=== PATIENT | male | born 1960 | race Hispanic/Latino ===

== ENCOUNTER → 2023-05-05 | Outpatient (CLI) | payer BC ==
[~2023-05-05] MED LIST: CEPH500B PO
[2023-05-05 12:29] LABS: CREATININE 0.8 mg/dL (0.5-1.5)
== END | disposition home or self-care (01) ==
LOC: LAB 11:19
PROVIDERS: ATTEND Physician Assistant
DX: I73.9 Peripheral vascular disease, unspecified (principal)
CPT/HCPCS: 36415; 82565; 84520

== ENCOUNTER → 2023-05-15 | Outpatient (CLI) | payer BC ==
[~2023-05-15] MED LIST changes: +IOHEXOL 350 MG/ML 100ML INFUS..BTL IV ONE; +IOHEXOL-350 50ML VIAL IV ONE
== END | disposition home or self-care (01) ==
LOC: RAH 09:28
PROVIDERS: ATTEND Internal Medicine Cardiovascular Disease
DX: I77.811 Abdominal aortic ectasia (principal); I70.203 Unspecified atherosclerosis of native arteries of extremities, bilateral legs; I70.8 Atherosclerosis of other arteries
CPT/HCPCS: 75635; Q9967 ×2

== ENCOUNTER → 2023-07-11 | Outpatient (CLI) | payer BC ==
[~2023-07-11] MED LIST changes: +ASPI-1197 PO; +ATOR40TA71 PO; -CEPH500B PO; +CILO100T3 PO; +DIVA-78 PO; +EMPA25TA PO; +HONEY 1 APPL/ML TUBE TP ONE; -IOHEXOL 350 MG/ML 100ML INFUS..BTL IV ONE; -IOHEXOL-350 50ML VIAL IV ONE; +LIDOCAINE HCL 4% LTA SOL 4 ML VIAL TP ONE; +LOSA25TA41 PO; +OLAN20TA35 PO; +SITA1TAB6 PO; +VENL150T3 PO
== END | disposition home or self-care (01) ==
LOC: WHH 09:00
PROVIDERS: ATTEND Nurse Practitioner Family
DX: T87.81 Dehiscence of amputation stump (principal); E11.622 Type 2 diabetes mellitus with other skin ulcer; L98.492 Non-pressure chronic ulcer of skin of other sites with fat layer exposed; E11.69 Type 2 diabetes mellitus with other specified complication; M86.9 Osteomyelitis, unspecified; E11.51 Type 2 diabetes mellitus with diabetic peripheral angiopathy without gangrene; I10 Essential (primary) hypertension; E78.5 Hyperlipidemia, unspecified; F41.9 Anxiety disorder, unspecified; F32.A Depression, unspecified; Z79.82 Long term (current) use of aspirin; Z79.899 Other long term (current) drug therapy; Y83.8 Other surgical procedures as the cause of abnormal reaction of the patient, or of later complication, without mention of misadventure at the time of the procedure
CPT/HCPCS: 11042; 11045; A4450

== ENCOUNTER → 2023-07-18 | Outpatient (CLI) | payer BC ==
[~2023-07-18] MED LIST changes: -HONEY 1 APPL/ML TUBE TP ONE; -LIDOCAINE HCL 4% LTA SOL 4 ML VIAL TP ONE
== END | disposition home or self-care (01) ==
LOC: WHH 08:11
PROVIDERS: ATTEND Nurse Practitioner Family
DX: T87.81 Dehiscence of amputation stump (principal); E11.622 Type 2 diabetes mellitus with other skin ulcer; L98.492 Non-pressure chronic ulcer of skin of other sites with fat layer exposed; E11.69 Type 2 diabetes mellitus with other specified complication; M86.9 Osteomyelitis, unspecified; E11.51 Type 2 diabetes mellitus with diabetic peripheral angiopathy without gangrene; I10 Essential (primary) hypertension; E78.5 Hyperlipidemia, unspecified; F41.9 Anxiety disorder, unspecified; F32.A Depression, unspecified; Z79.82 Long term (current) use of aspirin; Z79.899 Other long term (current) drug therapy; Y83.8 Other surgical procedures as the cause of abnormal reaction of the patient, or of later complication, without mention of misadventure at the time of the procedure
CPT/HCPCS: 11042

== ENCOUNTER → 2023-07-25 | Outpatient (CLI) | payer BC ==
[~2023-07-25] MED LIST changes: +LIDOCAINE HCL 4% LTA SOL 4 ML VIAL TP ONE
== END | disposition home or self-care (01) ==
LOC: WHH 08:04
PROVIDERS: ATTEND Nurse Practitioner Family
DX: T87.81 Dehiscence of amputation stump (principal); E11.622 Type 2 diabetes mellitus with other skin ulcer; L98.492 Non-pressure chronic ulcer of skin of other sites with fat layer exposed; E11.69 Type 2 diabetes mellitus with other specified complication; M86.9 Osteomyelitis, unspecified; E11.51 Type 2 diabetes mellitus with diabetic peripheral angiopathy without gangrene; I10 Essential (primary) hypertension; E78.00 Pure hypercholesterolemia, unspecified; F41.9 Anxiety disorder, unspecified; F32.A Depression, unspecified; Z79.82 Long term (current) use of aspirin; Z79.4 Long term (current) use of insulin; Z79.899 Other long term (current) drug therapy; Y83.8 Other surgical procedures as the cause of abnormal reaction of the patient, or of later complication, without mention of misadventure at the time of the procedure
CPT/HCPCS: 87070; 87077; 87186; 99214; A6209; A6260

== ENCOUNTER → 2023-07-26 | Outpatient (CLI) | payer BC ==
[~2023-07-26] MED LIST changes: -LIDOCAINE HCL 4% LTA SOL 4 ML VIAL TP ONE
== END | disposition home or self-care (01) ==
LOC: WHH 08:03
PROVIDERS: ATTEND Nurse Practitioner Family
DX: T87.81 Dehiscence of amputation stump (principal); E11.622 Type 2 diabetes mellitus with other skin ulcer; L98.492 Non-pressure chronic ulcer of skin of other sites with fat layer exposed; E11.69 Type 2 diabetes mellitus with other specified complication; M86.9 Osteomyelitis, unspecified; E11.51 Type 2 diabetes mellitus with diabetic peripheral angiopathy without gangrene; I10 Essential (primary) hypertension; E78.00 Pure hypercholesterolemia, unspecified; F41.9 Anxiety disorder, unspecified; F32.A Depression, unspecified; Z79.82 Long term (current) use of aspirin; Z79.4 Long term (current) use of insulin; Z79.899 Other long term (current) drug therapy; Y83.5 Amputation of limb(s) as the cause of abnormal reaction of the patient, or of later complication, without mention of misadventure at the time of the procedure
CPT/HCPCS: G0463; A6209; 99211

== ENCOUNTER → 2023-07-27 | Outpatient (CLI) | payer BC | END | disposition home or self-care (01) | LOC: WHH 10:55 | PROVIDERS: ATTEND Nurse Practitioner Family | DX: T87.81 Dehiscence of amputation stump (principal); E11.622 Type 2 diabetes mellitus with other skin ulcer; L98.492 Non-pressure chronic ulcer of skin of other sites with fat layer exposed; E11.69 Type 2 diabetes mellitus with other specified complication; M86.9 Osteomyelitis, unspecified; E11.51 Type 2 diabetes mellitus with diabetic peripheral angiopathy without gangrene; I10 Essential (primary) hypertension; E78.00 Pure hypercholesterolemia, unspecified; F41.9 Anxiety disorder, unspecified; F32.A Depression, unspecified; Z79.82 Long term (current) use of aspirin; Z79.4 Long term (current) use of insulin; Z79.899 Other long term (current) drug therapy; Y83.8 Other surgical procedures as the cause of abnormal reaction of the patient, or of later complication, without mention of misadventure at the time of the procedure | CPT/HCPCS: 99211; A6209 ==

== ENCOUNTER → 2023-07-28 | Outpatient (CLI) | payer BC | END | disposition home or self-care (01) | LOC: WHH 08:56 | PROVIDERS: ATTEND Nurse Practitioner Family | DX: T87.81 Dehiscence of amputation stump (principal); E11.622 Type 2 diabetes mellitus with other skin ulcer; L98.492 Non-pressure chronic ulcer of skin of other sites with fat layer exposed; E11.69 Type 2 diabetes mellitus with other specified complication; M86.9 Osteomyelitis, unspecified; E11.51 Type 2 diabetes mellitus with diabetic peripheral angiopathy without gangrene; I10 Essential (primary) hypertension; E78.5 Hyperlipidemia, unspecified; F41.9 Anxiety disorder, unspecified; F32.A Depression, unspecified; Z79.82 Long term (current) use of aspirin; Z79.899 Other long term (current) drug therapy; Y83.8 Other surgical procedures as the cause of abnormal reaction of the patient, or of later complication, without mention of misadventure at the time of the procedure | CPT/HCPCS: G0463; A6209; 99211 ==

== ENCOUNTER → 2023-07-31 | Outpatient (CLI) | payer BC | END | disposition home or self-care (01) | LOC: WHH 09:13 | PROVIDERS: ATTEND Nurse Practitioner Family | DX: T87.81 Dehiscence of amputation stump (principal); E11.622 Type 2 diabetes mellitus with other skin ulcer; L98.492 Non-pressure chronic ulcer of skin of other sites with fat layer exposed; E11.69 Type 2 diabetes mellitus with other specified complication; M86.9 Osteomyelitis, unspecified; E11.51 Type 2 diabetes mellitus with diabetic peripheral angiopathy without gangrene; I10 Essential (primary) hypertension; E78.00 Pure hypercholesterolemia, unspecified; F41.9 Anxiety disorder, unspecified; F32.A Depression, unspecified; Z79.82 Long term (current) use of aspirin; Z79.84 Long term (current) use of oral hypoglycemic drugs; Z79.899 Other long term (current) drug therapy; Y83.8 Other surgical procedures as the cause of abnormal reaction of the patient, or of later complication, without mention of misadventure at the time of the procedure | CPT/HCPCS: 99211; A6209; A4450 ==

== ENCOUNTER → 2023-08-01 | Outpatient (CLI) | payer BC | END | disposition home or self-care (01) | LOC: WHH 08:51 | PROVIDERS: ATTEND Nurse Practitioner Family | DX: T87.81 Dehiscence of amputation stump (principal); E11.622 Type 2 diabetes mellitus with other skin ulcer; L98.492 Non-pressure chronic ulcer of skin of other sites with fat layer exposed; E11.69 Type 2 diabetes mellitus with other specified complication; M86.9 Osteomyelitis, unspecified; E11.51 Type 2 diabetes mellitus with diabetic peripheral angiopathy without gangrene; I10 Essential (primary) hypertension; E78.00 Pure hypercholesterolemia, unspecified; F41.9 Anxiety disorder, unspecified; F32.A Depression, unspecified; Z79.82 Long term (current) use of aspirin; Z79.4 Long term (current) use of insulin; Z79.899 Other long term (current) drug therapy; Y83.5 Amputation of limb(s) as the cause of abnormal reaction of the patient, or of later complication, without mention of misadventure at the time of the procedure | CPT/HCPCS: 99214; A6209 ==

== ENCOUNTER → 2023-08-02 | Outpatient (CLI) | payer BC | END | disposition home or self-care (01) | LOC: WHH 08:42 | PROVIDERS: ATTEND Nurse Practitioner Family | DX: T87.81 Dehiscence of amputation stump (principal); E11.622 Type 2 diabetes mellitus with other skin ulcer; L98.492 Non-pressure chronic ulcer of skin of other sites with fat layer exposed; E11.69 Type 2 diabetes mellitus with other specified complication; M86.9 Osteomyelitis, unspecified; E11.51 Type 2 diabetes mellitus with diabetic peripheral angiopathy without gangrene; I10 Essential (primary) hypertension; E78.00 Pure hypercholesterolemia, unspecified; F41.9 Anxiety disorder, unspecified; F32.A Depression, unspecified; Z79.82 Long term (current) use of aspirin; Z79.4 Long term (current) use of insulin; Z79.899 Other long term (current) drug therapy; Y83.8 Other surgical procedures as the cause of abnormal reaction of the patient, or of later complication, without mention of misadventure at the time of the procedure | CPT/HCPCS: G0463; A6209; 99211 ==

== ENCOUNTER → 2023-08-04 | Outpatient (CLI) | payer BC | END | disposition home or self-care (01) | LOC: WHH 08:59 | PROVIDERS: ATTEND Nurse Practitioner Family | DX: T87.81 Dehiscence of amputation stump (principal); E11.622 Type 2 diabetes mellitus with other skin ulcer; L98.492 Non-pressure chronic ulcer of skin of other sites with fat layer exposed; E11.69 Type 2 diabetes mellitus with other specified complication; M86.9 Osteomyelitis, unspecified; E11.51 Type 2 diabetes mellitus with diabetic peripheral angiopathy without gangrene; I10 Essential (primary) hypertension; E78.00 Pure hypercholesterolemia, unspecified; F41.9 Anxiety disorder, unspecified; F32.A Depression, unspecified; Z79.82 Long term (current) use of aspirin; Z79.84 Long term (current) use of oral hypoglycemic drugs; Z79.899 Other long term (current) drug therapy; Y83.5 Amputation of limb(s) as the cause of abnormal reaction of the patient, or of later complication, without mention of misadventure at the time of the procedure | CPT/HCPCS: G0463; A6209; 99211 ==

== ENCOUNTER → 2023-08-08 | Outpatient (CLI) | payer BC ==
[~2023-08-08] MED LIST changes: +LIDOCAINE HCL 4% LTA SOL 4 ML VIAL TP ONE
== END | disposition home or self-care (01) ==
LOC: WHH 09:06
PROVIDERS: ATTEND Nurse Practitioner Family
DX: T87.81 Dehiscence of amputation stump (principal); E11.622 Type 2 diabetes mellitus with other skin ulcer; L98.492 Non-pressure chronic ulcer of skin of other sites with fat layer exposed; E11.69 Type 2 diabetes mellitus with other specified complication; M86.9 Osteomyelitis, unspecified; E11.51 Type 2 diabetes mellitus with diabetic peripheral angiopathy without gangrene; I10 Essential (primary) hypertension; E78.00 Pure hypercholesterolemia, unspecified; F41.9 Anxiety disorder, unspecified; F32.A Depression, unspecified; Z79.82 Long term (current) use of aspirin; Z79.4 Long term (current) use of insulin; Z79.899 Other long term (current) drug therapy; Y83.5 Amputation of limb(s) as the cause of abnormal reaction of the patient, or of later complication, without mention of misadventure at the time of the procedure
CPT/HCPCS: 11042; A4649; A6196

== ENCOUNTER → 2023-08-11 | Outpatient (CLI) | payer BC ==
[~2023-08-11] MED LIST changes: -LIDOCAINE HCL 4% LTA SOL 4 ML VIAL TP ONE
== END | disposition home or self-care (01) ==
LOC: WHH 08:56
PROVIDERS: ATTEND Nurse Practitioner Family
DX: T87.81 Dehiscence of amputation stump (principal); E11.622 Type 2 diabetes mellitus with other skin ulcer; L98.492 Non-pressure chronic ulcer of skin of other sites with fat layer exposed; E11.69 Type 2 diabetes mellitus with other specified complication; M86.9 Osteomyelitis, unspecified; E11.51 Type 2 diabetes mellitus with diabetic peripheral angiopathy without gangrene; I10 Essential (primary) hypertension; E78.00 Pure hypercholesterolemia, unspecified; F41.9 Anxiety disorder, unspecified; F32.A Depression, unspecified; Z79.82 Long term (current) use of aspirin; Z79.4 Long term (current) use of insulin; Z79.899 Other long term (current) drug therapy; Y83.5 Amputation of limb(s) as the cause of abnormal reaction of the patient, or of later complication, without mention of misadventure at the time of the procedure
CPT/HCPCS: G0463; A4649; A6197; 99211

== ENCOUNTER → 2023-08-14 | Outpatient (CLI) | payer BC ==
[~2023-08-14] MED LIST changes: +LIDOCAINE HCL 4% LTA SOL 4 ML VIAL TP ONE
== END | disposition home or self-care (01) ==
LOC: WHH 08:58
PROVIDERS: ATTEND Nurse Practitioner Family
DX: T81.31XD Disruption of external operation (surgical) wound, not elsewhere classified, subsequent encounter (principal); E11.622 Type 2 diabetes mellitus with other skin ulcer; L98.492 Non-pressure chronic ulcer of skin of other sites with fat layer exposed; E11.69 Type 2 diabetes mellitus with other specified complication; M86.9 Osteomyelitis, unspecified; E11.51 Type 2 diabetes mellitus with diabetic peripheral angiopathy without gangrene; I10 Essential (primary) hypertension; E78.00 Pure hypercholesterolemia, unspecified; F41.9 Anxiety disorder, unspecified; F31.30 Bipolar disorder, current episode depressed, mild or moderate severity, unspecified; F17.210 Nicotine dependence, cigarettes, uncomplicated; Z79.82 Long term (current) use of aspirin; Z79.4 Long term (current) use of insulin; Z79.899 Other long term (current) drug therapy; Y83.8 Other surgical procedures as the cause of abnormal reaction of the patient, or of later complication, without mention of misadventure at the time of the procedure
CPT/HCPCS: 99214; A4649; A6196

== ENCOUNTER 2023-08-21 10:55 | Emergency (ER) | payer BC ==
[~2023-08-21] VITALS: Ht 165.1 cm; Wt 68.0 kg
[~2023-08-21 10:55] MED LIST changes: -LIDOCAINE HCL 4% LTA SOL 4 ML VIAL TP ONE
[2023-08-21 12:03] LABS: BASOPHILS # (AUTO) 0.02 K/uL (0.00-0.20); BASOPHILS % (AUTO) 0.4 % (0.0-5.0); EOSINOPHILS # (AUTO) 0.18 K/uL (0.00-0.70); EOSINOPHILS % (AUTO) 3.2 % (0.0-8.0); HEMATOCRIT 40.4 % (42-54); IMMATURE GRANULOCYTE ABSOLUTE 0.01 K/uL (0-1); LYMPHOCYTES # (AUTO) 0.6 K/uL (1.0-4.8); LYMPHOCYTES % (AUTO) 10.3 % (21.0-51.0); MEAN CORPUSCULAR HGB CONC 32.9 g/dL (32.0-36.0); MEAN CORPUSCULAR VOLUME 85.1 fL (79-99); MONOCYTES # (AUTO) 0.5 K/uL (0.1-1.0); NEUTROPHILS # (AUTO) 4.4 K/uL (1.8-7.7); NEUTROPHILS % (AUTO) 77.9 % (40.0-77.0); PLATELET COUNT (AUTO) 239 K/uL (130-400); RED BLOOD CELL COUNT(AUTO) 4.75 MIL/uL (4.50-6.20); RED CELL DISTRIBUTION WIDTH 12.8 % (11.0-15.5); WHITE BLOOD COUNT (AUTO) 5.7 K/uL (4.8-10.8)
[2023-08-21 12:15] LABS: CREATININE 0.8 mg/dL (0.5-1.5); POTASSIUM 4.2 mmol/L (3.5-5.1)
[2023-08-21 12:20] LABS: ALBUMIN 3.1 g/dL (3.5-5.0); BILIRUBIN,TOTAL 0.2 mg/dL (0.2-1.0); TOTAL PROTEIN, SERUM 7.6 g/dL (6.0-8.3)
[2023-08-21 13:38] VITALS: BP 144/97; PULSE 87; RESP 18; O2SAT 98
== END 2023-08-21 13:38 | disposition home or self-care (01) ==
LOC: EDH 10:55
DX: S00.03XA Contusion of scalp, initial encounter (principal); E11.65 Type 2 diabetes mellitus with hyperglycemia; R55 Syncope and collapse; I10 Essential (primary) hypertension; E78.00 Pure hypercholesterolemia, unspecified; Z79.84 Long term (current) use of oral hypoglycemic drugs; Z79.899 Other long term (current) drug therapy; W18.30XA Fall on same level, unspecified, initial encounter; Y93.89 Activity, other specified; Y92.89 Other specified places as the place of occurrence of the external cause; Y99.8 Other external cause status
CPT/HCPCS: 36415; 70450; 71045; 80053; 85025; 93005

== ENCOUNTER 2023-08-22 09:28 | Emergency (ER) | payer BC ==
[~2023-08-22] VITALS: Ht 165.1 cm; Wt 68.0 kg
[2023-08-22 10:07] LABS: BASOPHILS # (AUTO) 0.03 K/uL (0.00-0.20); BASOPHILS % (AUTO) 0.3 % (0.0-5.0); EOSINOPHILS # (AUTO) 0.16 K/uL (0.00-0.70); EOSINOPHILS % (AUTO) 1.8 % (0.0-8.0); HEMATOCRIT 38.2 % (42-54); IMMATURE GRANULOCYTE ABSOLUTE 0.04 K/uL (0-1); LYMPHOCYTES # (AUTO) 0.6 K/uL (1.0-4.8); MEAN CORPUSCULAR HEMOGLOBIN 28.1 pg (27.0-33.0); MEAN CORPUSCULAR VOLUME 85.1 fL (79-99); MONOCYTES # (AUTO) 0.6 K/uL (0.1-1.0); MONOCYTES % (AUTO) 6.8 % (3.0-13.0); NEUTROPHILS # (AUTO) 7.5 K/uL (1.8-7.7); NEUTROPHILS % (AUTO) 83.7 % (40.0-77.0); PLATELET COUNT (AUTO) 222 K/uL (130-400); RED BLOOD CELL COUNT(AUTO) 4.49 MIL/uL (4.50-6.20)
[2023-08-22 10:12] LABS: CREATININE 1.3 mg/dL (0.5-1.5); POTASSIUM 3.7 mmol/L (3.5-5.1)
[2023-08-22 10:39] LABS: INFLUENZA TYPE A Negative For Type A (NEGATIVE); INFLUENZA TYPE B Negative For Type B (NEGATIVE)
[2023-08-22 10:40] LABS: COVID19 (SARS ANTIGEN RAPID) PRESUMPTIVE NEGATIVE (NEGATIVE)
[2023-08-22 12:55] VITALS: BP 136/75; PULSE 88; RESP 18; O2SAT 99
[2023-08-22] MEDS ORDERED: LACTATED RINGERS 1000ML 1,000 ML IV ONE (13:30)
== END 2023-08-22 14:15 | disposition home or self-care (01) ==
LOC: EDH 09:28
DX: R53.1 Weakness (principal); E86.0 Dehydration; I10 Essential (primary) hypertension; E78.00 Pure hypercholesterolemia, unspecified; E11.9 Type 2 diabetes mellitus without complications; Z79.899 Other long term (current) drug therapy; Z20.822 Contact with and (suspected) exposure to COVID-19
CPT/HCPCS: 99284; 70450; 96360; 71045; 87426; 82550; 80048; 85025; 87804 ×2; 82948; 83605; 36415; 72170; 72125; J7120

== ENCOUNTER 2023-08-24 13:44 | Emergency (ER) | payer BC ==
[~2023-08-24] VITALS: Ht 165.1 cm; Wt 68.0 kg
[2023-08-24] MEDS ORDERED: TETANUS/DIPHTHERIA TOXOID [ADULT] 0.5 ML VIAL IM ONE (17:30)
[2023-08-24 18:51] VITALS: BP 138/82; PULSE 95; RESP 18; O2SAT 100
[2023-08-24] MEDS ORDERED: OCTYL 2-CYANOACRYLATE 1 EACH TP ONE (19:09)
== END 2023-08-24 19:25 | disposition home or self-care (01) ==
LOC: EDH 13:44
DX: S01.21XA Laceration without foreign body of nose, initial encounter (principal); S80.02XA Contusion of left knee, initial encounter; S80.01XA Contusion of right knee, initial encounter; E11.9 Type 2 diabetes mellitus without complications; E78.00 Pure hypercholesterolemia, unspecified; F17.200 Nicotine dependence, unspecified, uncomplicated; I10 Essential (primary) hypertension; Z79.02 Long term (current) use of antithrombotics/antiplatelets; Z79.82 Long term (current) use of aspirin; Z79.84 Long term (current) use of oral hypoglycemic drugs; Z79.899 Other long term (current) drug therapy; W18.39XA Other fall on same level, initial encounter; Y93.89 Activity, other specified; Y92.89 Other specified places as the place of occurrence of the external cause; Y99.8 Other external cause status
CPT/HCPCS: 99284; 90714; 73562; 70486; 90471; 12011; 99214; A6248

== ENCOUNTER → 2023-08-24 | Outpatient (CLI) | payer BC | END | disposition home or self-care (01) | LOC: WHH 11:01 | PROVIDERS: ATTEND Nurse Practitioner Family | DX: T81.31XD Disruption of external operation (surgical) wound, not elsewhere classified, subsequent encounter (principal); E11.622 Type 2 diabetes mellitus with other skin ulcer; L98.492 Non-pressure chronic ulcer of skin of other sites with fat layer exposed; E11.69 Type 2 diabetes mellitus with other specified complication; M86.9 Osteomyelitis, unspecified; E11.51 Type 2 diabetes mellitus with diabetic peripheral angiopathy without gangrene; I10 Essential (primary) hypertension; E78.00 Pure hypercholesterolemia, unspecified; F41.9 Anxiety disorder, unspecified; F31.30 Bipolar disorder, current episode depressed, mild or moderate severity, unspecified; F17.210 Nicotine dependence, cigarettes, uncomplicated; Z79.82 Long term (current) use of aspirin; Z79.4 Long term (current) use of insulin; Z79.899 Other long term (current) drug therapy; Y83.8 Other surgical procedures as the cause of abnormal reaction of the patient, or of later complication, without mention of misadventure at the time of the procedure | CPT/HCPCS: 99214; A6248 ==

== ENCOUNTER 2024-01-06 10:47 | Inpatient (IN) | payer BC ==
[~2024-01-06] VITALS: Ht 165.1 cm; Wt 51.3 kg
[2024-01-06 11:35] LABS: BASOPHILS # (AUTO) 0.02 K/uL (0.00-0.20); BASOPHILS % (AUTO) 0.1 % (0.0-5.0); HEMATOCRIT 23.4 % (42-54); IMMATURE GRANULOCYTE ABSOLUTE 0.07 K/uL (0-1); LYMPHOCYTES # (AUTO) 0.4 K/uL (1.0-4.8); LYMPHOCYTES % (AUTO) 3.1 % (21.0-51.0); MEAN CORPUSCULAR HEMOGLOBIN 28.6 pg (27.0-33.0); MEAN CORPUSCULAR HGB CONC 31.2 g/dL (32.0-36.0); MEAN CORPUSCULAR VOLUME 91.8 fL (79-99); MONOCYTES # (AUTO) 0.8 K/uL (0.1-1.0); MONOCYTES % (AUTO) 5.5 % (3.0-13.0); NEUTROPHILS # (AUTO) 12.7 K/uL (1.8-7.7); NEUTROPHILS % (AUTO) 90.8 % (40.0-77.0); PLATELET COUNT (AUTO) 506 K/uL (130-400); RED BLOOD CELL COUNT(AUTO) 2.55 MIL/uL (4.50-6.20); RED CELL DISTRIBUTION WIDTH 19.9 % (11.0-15.5)
[2024-01-06] MEDS: ZOSYN 3.375GM +NS 50ML IVPB ONE (11:40)
[2024-01-06] MEDS: 0.9%NACL 1000ML 1,845 ML IV ONE (11:40)
[2024-01-06 11:47] LABS: ALBUMIN 2.2 g/dL (3.5-5.0); BILIRUBIN,TOTAL 0.2 mg/dL (0.2-1.0); CREATININE 0.9 mg/dL (0.5-1.3); MAGNESIUM 2.1 mg/dL (1.80-2.40); TOTAL PROTEIN, SERUM 7.5 g/dL (6.0-8.3)
[2024-01-06] MEDS: VANCOMYCIN KIT 1 GM/250 ML IV.KIT IV ONE (12:08)
[2024-01-06] MEDS ORDERED: VANCOMYCIN PROTOCOL PER PHARMACY IV SCH (12:30)
[2024-01-06] MEDS ORDERED: CEFEPIME HCL 1 GM VIAL IVPB SCH ×2 (12:30→18:00)
[2024-01-06 12:59] LABS: THYROID STIMULATING HORMONE 1.71 uIU/mL (0.36-3.74)
[2024-01-06] MEDS ORDERED: COMPOUND IV MISC 1 EACH IVSOLN MISC PRN (13:00)
[2024-01-06 13:41] LABS: ABG OXYGEN SATURATION 27.9 % (95.0-99.0); DEVICE COMMENT VENOUS; HCO3,VENOUS BLOOD GAS 22.7 (21.0-28.0); PCO2,VENOUS BLOOD GAS 39 (32-45); PH,VENOUS BLOOD GAS 7.383 (7.350-7.450); PO2,VENOUS BLOOD GAS 18.5 mmHg (35.0-45.0); VENT MODE, BG RA (ROOM AIR)
[2024-01-06 13:48] LABS: APPEARANCE,URINE CLEAR (CLEAR); BILIRUBIN,URINE NEGATIVE (NEGATIVE); GLUCOSE, URINE (UA) >=1000 mg/dL (NEGATIVE); KETONES,URINE NEGATIVE (NEGATIVE); LEUKOCYTE ESTERASE ,URINE 25 Leu/uL (NEGATIVE); NITRATE,URINE NEGATIVE (NEGATIVE); OCCULT BLOOD,URINE NEGATIVE (NEGATIVE); PH,URINE 5.5 (5.0-8.0); PROTEIN,URINE NEGATIVE (NEGATIVE); UROBILINOGEN,URINE 0.2 mg/dL (0.2-1.0)
[2024-01-06 13:49] LABS: ADD UA MICROSCOPIC YES; COLOR,URINE LIGHT-YELLOW (YELLOW)
[2024-01-06 13:50] LABS: BACTERIA,URINE RARE /HPF (None Seen); RBC,URINE 0-1 /HPF (0-1); SQUAMOUS EPITHELIAL CELL,UR FEW /HPF (0-2)
[2024-01-06] MEDS: 0.9%NACL 1000ML 1,000 ML IV SCH (13:59)
[2024-01-06] MEDS ORDERED: ACETAMINOPHEN 500 MG TABLET PO PRN (14:00)
[2024-01-06] MEDS ORDERED: IOHEXOL 350 MG/ML 100ML INFUS..BTL IV ONE (15:07)
[2024-01-06 16:28] LABS: HEMATOCRIT 17.8 % (42-54)
[2024-01-06 16:53] LABS: BASOPHILS # (AUTO) 0.01 K/uL (0.00-0.20); BASOPHILS % (AUTO) 0.1 % (0.0-5.0); EOSINOPHILS # (AUTO) 0.02 K/uL (0.00-0.70); EOSINOPHILS % (AUTO) 0.2 % (0.0-8.0); IMMATURE GRANULOCYTE ABSOLUTE 0.04 K/uL (0-1); LYMPHOCYTES # (AUTO) 0.6 K/uL (1.0-4.8); LYMPHOCYTES % (AUTO) 6.6 % (21.0-51.0); MEAN CORPUSCULAR HEMOGLOBIN 28.3 pg (27.0-33.0); MEAN CORPUSCULAR HGB CONC 30.7 g/dL (32.0-36.0); MEAN CORPUSCULAR VOLUME 92.2 fL (79-99); MONOCYTES # (AUTO) 0.6 K/uL (0.1-1.0); MONOCYTES % (AUTO) 6.6 % (3.0-13.0); NEUTROPHILS # (AUTO) 7.5 K/uL (1.8-7.7); PLATELET COUNT (AUTO) 399 K/uL (130-400); RED BLOOD CELL COUNT(AUTO) 2.05 MIL/uL (4.50-6.20); RED CELL DISTRIBUTION WIDTH 20.2 % (11.0-15.5); WHITE BLOOD COUNT (AUTO) 8.7 K/uL (4.8-10.8)
[2024-01-06 16:59] LABS: HEMATOCRIT 18.9 % (42-54)
[2024-01-06] MEDS: MEROPENEM 1 GM in 0.9%NACL 100ML IVPB SCH (18:00)
[2024-01-06] MEDS: INSULIN HUMULIN R 100 UNIT/ML 3ML SQ SCH (18:00)
[2024-01-06] MEDS: LOSARTAN 25 MG TABLET PO ONE (18:23)
[2024-01-06 19:50] VITALS: BP 102/68; PULSE 93; RESP 20
[2024-01-06] MEDS: MEROPENEM 1 GM VIAL ONE (21:09)
[2024-01-06 23:07] LABS: HEMATOCRIT 22.3 % (42-54)
[2024-01-07] VITALS (13 sets, daily range): BP systolic 98–188; BP diastolic 64–91; PULSE 78–100; RESP 16–18; O2SAT 99–100
[2024-01-07] MEDS: VANCOMYCIN 500MG+NS 100ML IV SCH (01:07)
[2024-01-07 04:56] LABS: HEMATOCRIT 26.6 % (42-54)
[2024-01-07 05:36] LABS: BASOPHILS # (AUTO) 0.02 K/uL (0.00-0.20); BASOPHILS % (AUTO) 0.3 % (0.0-5.0); EOSINOPHILS # (AUTO) 0.04 K/uL (0.00-0.70); EOSINOPHILS % (AUTO) 0.6 % (0.0-8.0); IMMATURE GRANULOCYTE ABSOLUTE 0.04 K/uL (0-1); LYMPHOCYTES # (AUTO) 0.6 K/uL (1.0-4.8); LYMPHOCYTES % (AUTO) 7.8 % (21.0-51.0); MEAN CORPUSCULAR HEMOGLOBIN 29.7 pg (27.0-33.0); MEAN CORPUSCULAR HGB CONC 31.9 g/dL (32.0-36.0); MEAN CORPUSCULAR VOLUME 93.2 fL (79-99); MONOCYTES # (AUTO) 0.6 K/uL (0.1-1.0); NEUTROPHILS # (AUTO) 5.8 K/uL (1.8-7.7); NEUTROPHILS % (AUTO) 81.7 % (40.0-77.0); PLATELET COUNT (AUTO) 389 K/uL (130-400); RED BLOOD CELL COUNT(AUTO) 2.93 MIL/uL (4.50-6.20); WHITE BLOOD COUNT (AUTO) 7.1 K/uL (4.8-10.8)
[2024-01-07 05:38] LABS: CREATININE 0.6 mg/dL (0.5-1.3); POTASSIUM 3.5 mmol/L (3.5-5.1)
[2024-01-07] MEDS: LOSARTAN 25 MG TABLET PO SCH (09:40)
[2024-01-07 11:09] LABS: HEMATOCRIT 29.9 % (42-54)
[2024-01-07] MEDS ORDERED: CILO100T3 PO (14:17)
[2024-01-07] MEDS ORDERED: PIOG15TA66 PO (14:23)
[2024-01-07] MEDS ORDERED: DAPA10TA PO (14:23)
[2024-01-07] MEDS ORDERED: INSU200I4 SQ (14:23)
[2024-01-07] MEDS ORDERED: METO25TA6 PO (14:23)
[2024-01-07] MEDS ORDERED: METF-446 PO (14:23)
[2024-01-07 16:00] LABS: HEMATOCRIT 29.3 % (42-54)
[2024-01-07] MEDS: METOPROLOL TARTRATE 25 MG TAB PO SCH (20:40)
[2024-01-07] MEDS: OLANZAPINE 5 MG TAB PO SCH (20:40)
[2024-01-07] MEDS: RIFAMPIN 300 MG CAPSULE PO SCH (20:40)
[2024-01-08] VITALS (28 sets, daily range): BP systolic 126–195; BP diastolic 57–98; PULSE 68–104; RESP 15–21; O2SAT 99
[2024-01-08 05:13] LABS: HEMATOCRIT 29.2 % (42-54); MEAN CORPUSCULAR HEMOGLOBIN 28.8 pg (27.0-33.0); MEAN CORPUSCULAR HGB CONC 31.5 g/dL (32.0-36.0); MEAN CORPUSCULAR VOLUME 91.3 fL (79-99); RED BLOOD CELL COUNT(AUTO) 3.2 MIL/uL (4.50-6.20); RED CELL DISTRIBUTION WIDTH 18.4 % (11.0-15.5); WHITE BLOOD COUNT (AUTO) 6.6 K/uL (4.8-10.8)
[2024-01-08 05:23] LABS: CREATININE 0.6 mg/dL (0.5-1.3); POTASSIUM 3.2 mmol/L (3.5-5.1)
[2024-01-08 05:24] LABS: INR <= 0.93 (0.85-1.15)
[2024-01-08 05:26] LABS: PARTIAL THROMBOPLASTIN TIME 34.2 SEC (26.3-35.5)
[2024-01-08] MEDS: POTASSIUM CHLORIDE 20MEQ/100ML 100 ML IV PRN (05:59)
[2024-01-08] MEDS ORDERED: POTASSIUM CHLORIDE 10% ELIXIR 20 MEQ/15 ML UDCUP PO PRN (06:00)
[2024-01-08] MEDS: POTASSIUM CHLORIDE 20MEQ/100ML 100 ML IV ONE (08:35)
[2024-01-08] MEDS: ATORVASTATIN 40 MG TABLET PO SCH (09:00)
[2024-01-08] MEDS: VENLAFAXINE HCL XR 37.5 MG CAP PO SCH (09:00)
[2024-01-08] MEDS: VANCOMYCIN 750MG VIAL IVPB SCH (13:00)
[2024-01-08] MEDS: ACETAMINOPHEN 1,000 MG/100 ML VIAL IV ONE (13:33)
[2024-01-08] MEDS: FAMOTIDINE 20MG VIAL IV ONE (13:33)
[2024-01-08] MEDS ORDERED: LIDOCAINE PF 100MG/5ML (2%) SYRINGE 5ML ONE (13:37)
[2024-01-08] MEDS ORDERED: PROPOFOL 10 MG/ML 20ML VIAL IV ONE (13:37)
[2024-01-08] MEDS ORDERED: ROCURONIUM BROMIDE 10MG/1ML 5ML VL ONE (13:38)
[2024-01-08] MEDS: 0.9%NACL 1000ML 1,000 ML IV ONE (13:55)
[2024-01-08] MEDS ORDERED: FENTANYL CITRATE PF 50 MCG/1 ML 2ML VIAL ONE ×2 (14:49→16:09)
[2024-01-08] MEDS ORDERED: MIDAZOLAM HCL 1 MG/ML 2ML VIAL ONE (14:49)
[2024-01-08] MEDS ORDERED: PHENYLEPHRINE HCL 10 MG/ML 1ML VIAL IV ONE ×2 (15:16→15:20)
[2024-01-08] MEDS ORDERED: CEFAZOLIN SODIUM 1 GM VIAL ONE (15:35)
[2024-01-08] MEDS ORDERED: TRANEXAMIC ACID 1000MG/10ML ONE (15:54)
[2024-01-08] MEDS ORDERED: ACETAMINOPHEN 325 MG TAB PO PRN (16:00)
[2024-01-08] MEDS ORDERED: TRAMADOL HCL 50 MG TABLET PO PRN (16:00)
[2024-01-08] MEDS ORDERED: NEOSTIGMINE METHYLSULFATE 1MG/ML IV ONE (16:06)
[2024-01-08] MEDS ORDERED: GLYCOPYRROLATE 0.2 MG/ML 5 ML VIAL ONE (16:06)
[2024-01-08] MEDS: DEXTROSE 50%-WATER 50 ML DISP.SYRIN IV ONE (16:43)
[2024-01-08] MEDS: HYDRALAZINE 20MG/ML VIAL IV PRN (18:19)
[2024-01-08] MEDS: TRAMADOL HCL 50 MG TABLET PO PRN (19:31)
[2024-01-08] MEDS: CEFAZOLIN SODIUM 1 GM VIAL IVPB SCH (22:51)
[2024-01-09] VITALS (8 sets, daily range): BP systolic 138–164; BP diastolic 72–82; PULSE 76–94; RESP 16–21; O2SAT 98
[2024-01-09 05:07] LABS: HEMATOCRIT 31.9 % (42-54); MEAN CORPUSCULAR HEMOGLOBIN 29.7 pg (27.0-33.0); MEAN CORPUSCULAR HGB CONC 31.7 g/dL (32.0-36.0); MEAN CORPUSCULAR VOLUME 93.8 fL (79-99); RED BLOOD CELL COUNT(AUTO) 3.4 MIL/uL (4.50-6.20); RED CELL DISTRIBUTION WIDTH 18.3 % (11.0-15.5); WHITE BLOOD COUNT (AUTO) 7.5 K/uL (4.8-10.8)
[2024-01-09 05:26] LABS: ALBUMIN 1.7 g/dL (3.5-5.0); BILIRUBIN,TOTAL 0.3 mg/dL (0.2-1.0); CREATININE 0.8 mg/dL (0.5-1.3); MAGNESIUM 1.6 mg/dL (1.80-2.40); POTASSIUM 3.5 mmol/L (3.5-5.1); TOTAL PROTEIN, SERUM 6.1 g/dL (6.0-8.3)
[2024-01-09] MEDS: KCL 20 MEQ ERTAB PO PRN (06:25)
[2024-01-09] MEDS: MAGNESIUM 2GM PREMIX 50ML 50 ML IV PRN (06:26)
[2024-01-09] MEDS: POTASSIUM CHLORIDE 20MEQ/100ML 100 ML IV ONE (13:00)
[2024-01-09] MEDS ORDERED: MAGNESIUM 2GM PREMIX 50ML 50 ML IV SCH (13:00)
[2024-01-09] MEDS: NAFCILLIN 2GM+ NS 100ML 100 ML IV SCH (13:19)
[2024-01-09] MEDS ORDERED: CEFAZOLIN SODIUM 2 GM VIAL IVPB SCH (14:00)
[2024-01-10] VITALS (7 sets, daily range): BP systolic 130–164; BP diastolic 65–80; PULSE 75–95; RESP 16–18; O2SAT 98
[2024-01-10 04:53] LABS: HEMATOCRIT 27.7 % (42-54); MEAN CORPUSCULAR HEMOGLOBIN 29.2 pg (27.0-33.0); MEAN CORPUSCULAR VOLUME 93.9 fL (79-99); RED BLOOD CELL COUNT(AUTO) 2.95 MIL/uL (4.50-6.20); RED CELL DISTRIBUTION WIDTH 17.7 % (11.0-15.5); WHITE BLOOD COUNT (AUTO) 6.9 K/uL (4.8-10.8)
[2024-01-10 05:15] LABS: ALBUMIN 1.6 g/dL (3.5-5.0); BILIRUBIN,TOTAL 0.5 mg/dL (0.2-1.0); CREATININE 0.6 mg/dL (0.5-1.3); MAGNESIUM 1.9 mg/dL (1.80-2.40); POTASSIUM 3.5 mmol/L (3.5-5.1); TOTAL PROTEIN, SERUM 5.9 g/dL (6.0-8.3)
[2024-01-10] MEDS: CILOSTAZOL 100 MG TAB PO SCH (20:43)
[2024-01-11 00:05] VITALS: BP 161/87; PULSE 82; RESP 18
[2024-01-11 04:30] VITALS: BP 136/68; PULSE 84; RESP 18
[2024-01-11 04:54] LABS: HEMATOCRIT 25.8 % (42-54); MEAN CORPUSCULAR HEMOGLOBIN 28.8 pg (27.0-33.0); MEAN CORPUSCULAR HGB CONC 31.4 g/dL (32.0-36.0); MEAN CORPUSCULAR VOLUME 91.8 fL (79-99); RED BLOOD CELL COUNT(AUTO) 2.81 MIL/uL (4.50-6.20); RED CELL DISTRIBUTION WIDTH 17.6 % (11.0-15.5); WHITE BLOOD COUNT (AUTO) 6.5 K/uL (4.8-10.8)
[2024-01-11 05:20] LABS: ALBUMIN 1.5 g/dL (3.5-5.0); BILIRUBIN,TOTAL 0.3 mg/dL (0.2-1.0); CREATININE 0.7 mg/dL (0.5-1.3); MAGNESIUM 2.1 mg/dL (1.80-2.40); POTASSIUM 3.6 mmol/L (3.5-5.1); TOTAL PROTEIN, SERUM 5.7 g/dL (6.0-8.3)
[2024-01-11 07:30] VITALS: O2SAT 98
[2024-01-11 08:00] VITALS: BP 167/86; PULSE 88; RESP 16
[2024-01-11 11:55] VITALS: BP 126/54; PULSE 76; RESP 16
[2024-01-11 16:18] VITALS: BP 160/82; PULSE 81; RESP 16
== END 2024-01-11 16:44 | DRG 252 ==
LOC: EDH 10:47 → EDHIP 12:08 → 2DH 20:19
PROVIDERS: ADMIT Internal Medicine; ATTEND Internal Medicine
PROC: 30233N1 Transfusion of Nonautologous Red Blood Cells into Peripheral Vein, Percutaneous Approach (ICD-10-PCS; 2024-01-06)
PROC: 2W1MX6Z Compression of Left Lower Extremity using Pressure Dressing (ICD-10-PCS; 2024-01-08)
PROC: 04PY0JZ Removal of Synthetic Substitute from Lower Artery, Open Approach (ICD-10-PCS; principal; 2024-01-08 14:59)
DX: T82.7XXA Infection and inflammatory reaction due to other cardiac and vascular devices, implants and grafts, initial encounter (principal); A41.9 Sepsis, unspecified organism; R65.21 Severe sepsis with septic shock; D64.9 Anemia, unspecified; E11.65 Type 2 diabetes mellitus with hyperglycemia; R20.0 Anesthesia of skin; B95.61 Methicillin susceptible Staphylococcus aureus infection as the cause of diseases classified elsewhere; E11.51 Type 2 diabetes mellitus with diabetic peripheral angiopathy without gangrene; E78.00 Pure hypercholesterolemia, unspecified; F17.210 Nicotine dependence, cigarettes, uncomplicated; F32.A Depression, unspecified; I10 Essential (primary) hypertension; Y83.2 Surgical operation with anastomosis, bypass or graft as the cause of abnormal reaction of the patient, or of later complication, without mention of misadventure at the time of the procedure; Z83.3 Family history of diabetes mellitus; Z79.899 Other long term (current) drug therapy
CPT/HCPCS: 36415; 36430; 36600; 70450; 71045; 73521; 73702; 80048; 80053; 80202; 81001; 82803; 82948; 83036; 83605; 83735; 83880; 84145; 84443; 84484; 85014; 85018; 85025; 85027; 85610; 85730; 86140; 86850; 86900; 86901; 86923; 87040; 87070; 87076; 87077; 87186; 87205; 93005; 93925; 96365; 96366; 96367; 99291; G0378; J0360; J0690; J1644; J1815; J2001; J2185; J2250; J2371; J2543; J2704; J2710; J3010; J3370; J3475; J3480; J3490; J7030; J7070; P9016; Q9967; A4452; A4649; A6210; A6219; A9272; C1713

== ENCOUNTER → 2024-03-18 | Outpatient (CLI) | payer BC ==
[~2024-03-18] MED LIST changes: -ASPI-1197 PO; -DIVA-78 PO; -EMPA25TA PO; -LOSA25TA41 PO; -OLAN20TA35 PO; +OLAN20TA82 PO; -SITA1TAB6 PO
[2024-03-18 12:38] LABS: HEMOGLOBIN A1C 7.6 % (4.0-6.0)
[2024-03-18 12:41] LABS: CHOLESTEROL 126 mg/dL (<200); HDL CHOLESTEROL 48 mg/dL (29-71); LDL DIRECT 64 mg/dL (0-99); TRIGLYCERIDES 63 mg/dL (30-200)
== END | disposition home or self-care (01) ==
LOC: LAB 10:24
PROVIDERS: ATTEND Student in an Organized Health Care Education/Training Program
DX: I73.9 Peripheral vascular disease, unspecified (principal)
CPT/HCPCS: 36415; 80061; 83036

== ENCOUNTER 2024-06-19 18:16 | Inpatient (IN) | payer BC ==
[~2024-06-19] VITALS: Ht 165.1 cm; Wt 56.5 kg
[2024-06-19 18:51] LABS: BASOPHILS # (AUTO) 0.02 K/uL (0.00-0.20); BASOPHILS % (AUTO) 0.3 % (0.0-5.0); EOSINOPHILS # (AUTO) 0.08 K/uL (0.00-0.70); HEMATOCRIT 23.1 % (42-54); IMMATURE GRANULOCYTE ABSOLUTE 0.02 K/uL (0-1); LYMPHOCYTES # (AUTO) 0.5 K/uL (1.0-4.8); LYMPHOCYTES % (AUTO) 6.7 % (21.0-51.0); MEAN CORPUSCULAR HEMOGLOBIN 25.2 pg (27.0-33.0); MEAN CORPUSCULAR HGB CONC 30.3 g/dL (32.0-36.0); MEAN CORPUSCULAR VOLUME 83.1 fL (79-99); MONOCYTES # (AUTO) 0.8 K/uL (0.1-1.0); MONOCYTES % (AUTO) 9.9 % (3.0-13.0); NEUTROPHILS # (AUTO) 6.5 K/uL (1.8-7.7); NEUTROPHILS % (AUTO) 81.8 % (40.0-77.0); PLATELET COUNT (AUTO) 401 K/uL (130-400); RED BLOOD CELL COUNT(AUTO) 2.78 MIL/uL (4.50-6.20); RED CELL DISTRIBUTION WIDTH 23.2 % (11.0-15.5)
[2024-06-19 19:04] LABS: CREATININE 0.8 mg/dL (0.5-1.3); POTASSIUM 4.1 mmol/L (3.5-5.1)
[2024-06-19 19:12] LABS: INR <= 0.93 (0.85-1.15); PROTHROMBIN TIME 10.1 SEC (9.6-11.6)
[2024-06-19 19:13] LABS: B-TYPE NATRIURETIC PEPTIDE 170 pg/mL (0-100); PARTIAL THROMBOPLASTIN TIME 29.1 SEC (26.3-35.5)
[2024-06-19 19:15] LABS: PLATELET MORPHOLOGY LARGE PLTS PRESENT
[2024-06-19] MEDS ORDERED: LAbetaLOL 20MG SYG IV PRN (20:30)
[2024-06-19] MEDS ORDERED: ALBUTEROL 0.083% 2.5 MG/3 ML INH IH PRN (20:30)
[2024-06-19] MEDS ORDERED: hydrALAZine 20MG/ML VIAL IV PRN (20:30)
[2024-06-19] MEDS ORDERED: DEXTROSE 50%-WATER 50 ML DISP.SYRIN IV PRN (20:30)
[2024-06-19] MEDS ORDERED: MAGNESIUM 2GM PREMIX 50ML 50 ML IV PRN (20:30)
[2024-06-19] MEDS ORDERED: ondanSETRON 4MG INJ IVP PRN (20:30)
[2024-06-19] MEDS ORDERED: GLUCAGON 1MG KIT 1 MG ML IM PRN (20:30)
[2024-06-19 21:05] LABS: % IRON SATURATION 6.3 % (30-44)
[2024-06-19] MEDS: PANTOPrazole 40 MG/VIAL IVP SCH (21:30)
[2024-06-19] MEDS: NICOTINE 21 MG/ 24 HR PATCH TD SCH (21:30)
[2024-06-19] MEDS: 0.9%NACL 1000ML 1,000 ML IV SCH (21:30)
[2024-06-19] MEDS: INSULIN humuLIN R 100 UNIT/ML 3ML SQ SCH (21:44)
[2024-06-19 22:15] VITALS: PULSE 109; RESP 18; O2SAT 100
[2024-06-20 01:10] LABS: APPEARANCE,URINE CLEAR (CLEAR); BILIRUBIN,URINE NEGATIVE (NEGATIVE); COLOR,URINE COLORLESS (YELLOW); GLUCOSE, URINE (UA) >=1000 mg/dL (NEGATIVE); KETONES,URINE NEGATIVE (NEGATIVE); LEUKOCYTE ESTERASE ,URINE NEGATIVE Leu/uL (NEGATIVE); NITRATE,URINE NEGATIVE (NEGATIVE); OCCULT BLOOD,URINE NEGATIVE (NEGATIVE); PH,URINE 6.5 (5.0-8.0); PROTEIN,URINE NEGATIVE (NEGATIVE); UROBILINOGEN,URINE 0.2 mg/dL (0.2-1.0)
[2024-06-20 01:11] LABS: ADD UA MICROSCOPIC YES
[2024-06-20 01:20] LABS: SQUAMOUS EPITHELIAL CELL,UR RARE /HPF (0-2); WBC,URINE 0-1 /HPF (0-1)
[2024-06-20 06:52] LABS: HEMATOCRIT 23.2 % (42-54)
[2024-06-20 06:57] LABS: CREATININE 0.6 mg/dL (0.5-1.3); PHOSPHORUS 3.6 mg/dL (2.5-4.9); THYROID STIMULATING HORMONE 1.02 uIU/mL (0.36-3.74)
[2024-06-20 07:35] LABS: BASOPHILS # (AUTO) 0.02 K/uL (0.00-0.20); BASOPHILS % (AUTO) 0.3 % (0.0-5.0); EOSINOPHILS # (AUTO) 0.17 K/uL (0.00-0.70); EOSINOPHILS % (AUTO) 2.5 % (0.0-8.0); HEMATOCRIT 22.8 % (42-54); IMMATURE GRANULOCYTE ABSOLUTE 0.02 K/uL (0-1); LYMPHOCYTES # (AUTO) 0.7 K/uL (1.0-4.8); LYMPHOCYTES % (AUTO) 10.3 % (21.0-51.0); MEAN CORPUSCULAR HEMOGLOBIN 26.2 pg (27.0-33.0); MEAN CORPUSCULAR HGB CONC 30.7 g/dL (32.0-36.0); MEAN CORPUSCULAR VOLUME 85.4 fL (79-99); MONOCYTES # (AUTO) 0.8 K/uL (0.1-1.0); MONOCYTES % (AUTO) 11.1 % (3.0-13.0); NEUTROPHILS # (AUTO) 5.2 K/uL (1.8-7.7); NEUTROPHILS % (AUTO) 75.5 % (40.0-77.0); PLATELET COUNT (AUTO) 322 K/uL (130-400); RED BLOOD CELL COUNT(AUTO) 2.67 MIL/uL (4.50-6.20); RED CELL DISTRIBUTION WIDTH 21.9 % (11.0-15.5); WHITE BLOOD COUNT (AUTO) 6.8 K/uL (4.8-10.8)
[2024-06-20 12:18] VITALS: PULSE 102; RESP 18; O2SAT 99
[2024-06-20 12:50] LABS: HEMATOCRIT 24.1 % (42-54)
[2024-06-20] MEDS: IRON sUCROse COMPLEX 100 MG/5 ML VIAL IV SCH (13:24)
[2024-06-20 18:00] VITALS: BP 125/85; PULSE 103; RESP 18; TEMP 98; O2SAT 100
[2024-06-20] MEDS: PEG 3350/NA SULF,BICARB,CL/KCL 4000 ML SOLN PO ONE (18:32)
[2024-06-20 19:44] VITALS: O2SAT 99
[2024-06-20 20:00] VITALS: BP 125/89; PULSE 101; RESP 18; TEMP 98.6
[2024-06-20 22:49] LABS: HEMATOCRIT 27.2 % (42-54)
[2024-06-21] VITALS (21 sets, daily range): BP systolic 89–145; BP diastolic 56–90; PULSE 89–105; RESP 16–20; TEMP 97.6–99; O2SAT 96–99
[2024-06-21 05:36] LABS: HEMATOCRIT 24.2 % (42-54); MEAN CORPUSCULAR HEMOGLOBIN 26.3 pg (27.0-33.0); MEAN CORPUSCULAR HGB CONC 30.6 g/dL (32.0-36.0); MEAN CORPUSCULAR VOLUME 86.1 fL (79-99); RED BLOOD CELL COUNT(AUTO) 2.81 MIL/uL (4.50-6.20); RED CELL DISTRIBUTION WIDTH 22.2 % (11.0-15.5); WHITE BLOOD COUNT (AUTO) 6.5 K/uL (4.8-10.8)
[2024-06-21 06:20] LABS: CREATININE 0.6 mg/dL (0.5-1.3); POTASSIUM 3.6 mmol/L (3.5-5.1)
[2024-06-21] MEDS ORDERED: proPOFol 10 MG/ML 20ML VIAL IV ONE (14:01)
[2024-06-22] VITALS (7 sets, daily range): BP systolic 106–155; BP diastolic 65–75; PULSE 91–99; RESP 16–19; TEMP 98.2–98.6; O2SAT 96–97
[2024-06-22] MEDS ORDERED: PIOG15TA66 PO (02:25)
[2024-06-22] MEDS ORDERED: HYDR-3421 PO (02:25)
[2024-06-22] MEDS ORDERED: DAPA10TA PO (02:25)
[2024-06-22] MEDS ORDERED: DIVA500T52 PO (02:25)
[2024-06-22] MEDS ORDERED: IRON1CAP28 PO (02:25)
[2024-06-22] MEDS ORDERED: ASPI-1443 PO (02:25)
[2024-06-22] MEDS ORDERED: METF-446 PO (02:25)
[2024-06-22] MEDS ORDERED: CLOP75TA32 PO (02:25)
[2024-06-22] MEDS ORDERED: METO25TA6 PO (02:25)
[2024-06-22 05:18] LABS: HEMATOCRIT 27.7 % (42-54); MEAN CORPUSCULAR HEMOGLOBIN 26.2 pg (27.0-33.0); MEAN CORPUSCULAR HGB CONC 30.7 g/dL (32.0-36.0); MEAN CORPUSCULAR VOLUME 85.5 fL (79-99); RED BLOOD CELL COUNT(AUTO) 3.24 MIL/uL (4.50-6.20); RED CELL DISTRIBUTION WIDTH 22.3 % (11.0-15.5); WHITE BLOOD COUNT (AUTO) 5.7 K/uL (4.8-10.8)
[2024-06-22 05:30] LABS: CREATININE 0.6 mg/dL (0.5-1.3)
[2024-06-22] MEDS ORDERED: PoTASSium chl 10% ELIXIR 20MEQ 20 MEQ/15 ML UDCUP PO PRN (06:00)
[2024-06-22] MEDS ORDERED: PoTASSium chloRIDE 20MEQ ER 20 MEQ ERTAB PO PRN (06:00)
[2024-06-22] MEDS: PoTASSium chloRIDE 20MEQ/100ML 100 ML IV PRN (06:43)
[2024-06-22] MEDS ORDERED: FERS325 PO (08:17)
[2024-06-22] MEDS ORDERED: PANT40TA55 PO (08:17)
[2024-06-23 13:10] LABS: ERYTHROPOIETIN 130.9 mIU/mL (2.6-18.5)
== END 2024-06-22 13:24 | disposition home or self-care (01) | DRG 812 ==
LOC: EDH 18:16 → EDHIP 20:23 → OBSVTOIN 20:23 → 3CH 06-20 17:28
PROVIDERS: ADMIT Internal Medicine; ATTEND Internal Medicine
PROC: 30233N1 Transfusion of Nonautologous Red Blood Cells into Peripheral Vein, Percutaneous Approach (ICD-10-PCS; principal; 2024-06-19)
PROC: 0DB68ZX Excision of Stomach, Via Natural or Artificial Opening Endoscopic, Diagnostic (ICD-10-PCS; 2024-06-21)
PROC: 0DB98ZX Excision of Duodenum, Via Natural or Artificial Opening Endoscopic, Diagnostic (ICD-10-PCS; 2024-06-21)
PROC: 0DJD8ZZ Inspection of Lower Intestinal Tract, Via Natural or Artificial Opening Endoscopic (ICD-10-PCS; 2024-06-21)
DX: D50.9 Iron deficiency anemia, unspecified (principal); K29.60 Other gastritis without bleeding; R00.0 Tachycardia, unspecified; I10 Essential (primary) hypertension; L98.9 Disorder of the skin and subcutaneous tissue, unspecified; M34.9 Systemic sclerosis, unspecified; E11.65 Type 2 diabetes mellitus with hyperglycemia; E78.00 Pure hypercholesterolemia, unspecified; F17.200 Nicotine dependence, unspecified, uncomplicated; K29.70 Gastritis, unspecified, without bleeding
CPT/HCPCS: 36415; 36430; 43239; 45378; 80048; 81001; 82270; 82330; 82550; 82668; 82948; 83010; 83540; 83550; 83735; 83880; 84100; 84145; 84443; 84484; 85014; 85018; 85025; 85027; 85045; 85610; 85730; 86850; 86900; 86901; 86923; 94664; A4606; G0378; J1756; J1815; J2470; J2704; J3480; J7030; P9016; A4215; A4620; A4657; J3490